=== PATIENT | female | born 1960 | race African-American/Black ===

== ENCOUNTER 2020-03-20 15:54 | Emergency (ER) | payer BC, OTHER ==
[~2020-03-20] VITALS: Ht 170.2 cm; Wt 77.0 kg
[2020-03-20 16:49] LABS: BASOPHILS % 0.5 % (0.0-2.0); EOSINOPHILS % 1.6 % (0.0-5.0); HEMATOCRIT. 34.7 % (36.0-48.0); HEMOGLOBIN. 11.3 g/dL (12.0-16.0); MEAN CORPUSCULAR HEMOGLOBIN 26.6 pg (28.0-32.0); MEAN CORPUSCULAR VOLUME 81.5 fL (81.0-99.0); MEAN PLATELET VOLUME 11.1 fl (7.4-10.4); MONOCYTES % 9.6 % (2.0-8.0); NEUTROPHILS % 45.3 % (40.0-76.0); PLATELET 226 x1000/uL (130-400); RED BLOOD CELL COUNT 4.26 mill/uL (4.2-5.4); RED CELL DISTRIBUTION WIDTH 13.5 % (11.6-14.6)
[2020-03-20 16:57] LABS: CHLORIDE 98 mEq/L (98-107)
[2020-03-20 17:00] LABS: INR 1.1; PROTHROMBIN TIME 11.2 sec (9.6-11.0)
[2020-03-20 17:01] LABS: ETHANOL BLOOD < 10 mg/dL
[2020-03-20] MEDS ORDERED: ACETAMINOPHEN 325MG TABLET PO ONE (19:00)
[2020-03-20 20:36] VITALS: BP 119/63
== END 2020-03-20 20:50 | disposition home or self-care (01) ==
LOC: ER 15:54
DX: S82.831A Other fracture of upper and lower end of right fibula, initial encounter for closed fracture (principal); R55 Syncope and collapse; G62.9 Polyneuropathy, unspecified; Z88.2 Allergy status to sulfonamides; Z88.8 Allergy status to other drugs, medicaments and biological substances; W01.0XXA Fall on same level from slipping, tripping and stumbling without subsequent striking against object, initial encounter; Y93.89 Activity, other specified; Y92.512 Supermarket, store or market as the place of occurrence of the external cause
CPT/HCPCS: 36415; 71045; 73590; 73610; 80053; 80320; 84484; 85025; 86850; 86900; 93005; 99285; G0480